=== PATIENT | male | born 1955 | race American Indian/Alaskan Native ===

== ENCOUNTER 2018-08-16 20:38 | Inpatient (IN) | payer BC ==
[2018-08-16] MEDS ORDERED: Sodium Chloride 0.9% 1,000 ML IV SCH (20:45)
--- NOTE | 2018-08-16 20:54 | ED PDOC ---
Arrival/HPI - General Chief Complaint: Weakness/Neurological Deficit - History of Present Illness Narrative History of Present Illness (Text): 62 y/o M c PMHx DM p/w L sided weakness, facial droop, slurred speech noticed 2 hours ago. states he was normal last night around midnight. This is the last time well. left home this morning, patient not awake when she left. She returned from work around 6:30pm and noticed the change. Patient does not notice any change and does not feel that anything is wrong. Otherwise, denies fever, chest pain, vomiting, dyspnea, trauma. Past Medical History - Cardiac Hx Cardiac Disorders: Yes Hx Hypertension: Yes - Endocrine/Metabolic Hx Endocrine Disorders: Yes Hx Diabetes Mellitus Type 1: Yes - Psychiatric Hx Substance Use: No Family/Social History Family/Social History: No Known Family HX Smoking Status: Unknown If Ever Smoked Hx Alcohol Use: No Hx Substance Use: No Allergies/Home Meds Allergies/Adverse Reactions: Allergies No Known Allergies Allergy (Verified 08/16/18 20:40) Review of Systems - Physician Review All systems were reviewed & negative as marked: Yes - Review of Systems Constitutional: absent: Fevers Respiratory: absent: SOB Cardiovascular: absent: Chest Pain Physical Exam - Physical Exam Narrative Physical Exam (Text): Constitutional: No acute distress. Head: Normocephalic. Atraumatic. Eyes: PERRL. ENT: Moist mucous membranes. Neck: Supple. Cardiovascular: Regular rate. Chest: No tenderness. Respiratory: Clear to auscultation bilaterally. GI: Soft. Nontender. Nondistended. Back: No CVA tenderness. Musculoskeletal: No tenderness or swelling of extremities. Skin: No rash. Neurologic: Alert, see NIHSS. Finger Stick Blood Glucose: 326 Medical Decision Making ED Course and Treatment: CODE STROKE activated. EKG NSR 96 bpm, no ST elevations. CXR no acute disease. EXAM: CT Head without Intravenous Contrast. IMPRESSION: 1. There is generalized parenchymal atrophy. 2. Mild chronic periventricular and subcortical microvascular disease is seen. 3. No acute intracranial pathology. Electronically signed on Aug 16, 2018 8:59:54 PM EDT by: Pawan Bunn M.D., NAM Certified By ABR & CBCCT Fellowship Trained MRI and CT Specialist EXAM: CTA Head and Neck with Intravenous Contrast. IMPRESSION: 1. Unremarkable CTA of the head and neck. 2. Degenerative disc disease at C5-6. 3. 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 Electronically signed on Aug 16, 2018 10:13:56 PM EDT by: Pawan Bunn M.D., MBA Certified By ABR & CBCCT Fellowship Trained MRI and CT Specialist 08/16/18 21:34: Case discussed with Dr. Wu (Neurologist cash applications analyst). Recommends permissive HTN, Plavix 300. Not tpa candidate. 08/16/18 21:44: Case discussed in detail with Dr. Pina, covering for Dr. Mcknight. Accepts patient to his service, requests Dr. Gonzalez for neurology consult. - Lab Interpretations I have reviewed the lab results: Yes - RAD Interpretation Radiology Orders: 08/16/18 20:42 CTA HEAD/NECK CODE STROKE [CT] Stat HEAD W/O (CODE STROKE) [CT] Stat CHEST PORTABLE [RAD] Stat - EKG Interpretation Interpreted by ED Physician: Yes Type: 12 lead EKG - Medication Orders Current Medication Orders: Sodium Chloride (Sodium Chloride 0.9%) 1,000 mls @ 100 mls/hr IV .Q10H [facility] NIHSS Scale ([place]) Time Performed: 20:53 - How Severe is the Stoke Baseline Level of Consciousness: 0=Alert LOC to Questions: 0=Both comments correct LOC to commands: 0=Obeys both correctly Best Gaze: 0=Normal Visual: 0=No visual loss Facial: 2=Partial (lower face paralysis) Motor Arm - Left: 1=Drift noted before 10 sec Motor Arm - Right: 0=No drift Motor Leg - Left: 1=Drift before 5 sec Motor Leg - Right: 0=No drift Limb Ataxia: 0=Absent Sensory: 0=Normal Best Language: 0=No aphasia Dysarthia: 1=Mild to moderate slurring Extinction & Inattention (Neglect): 0=Normal, no object Score: 5 Risk Level: Mod Stroke Risk rTPA Inclusion/Exclusion - Refusal of Treatment Patient Refused Treatment: No - Inclusion Criteria for Altepase All of the below criteria for inclusion were reviewed: Yes Patient is 18 years or Older: Yes The Clinical Diagnosis of Ischemic Stroke That is Causing a Potentially Disabling Neurological Deficit: Yes Time of Onset is Well Established to be Less Than 270 Minute Before Treatment Would Begin: Yes Risk/Benefit Discussed With Patient/Family Member Present: Yes Disposition/Present on Arrival - Present on Arrival Any Indicators Present on Arrival: No History of DVT/PE: No History of Uncontrolled Diabetes: No Urinary Catheter: No History of Decub. Ulcer: No History Surgical Site Infection Following: None - Disposition Have Diagnosis and Disposition been Completed?: Yes Diagnosis: CVA (cerebral vascular accident) Disposition: HOSPITALIZED Disposition Time: 21:00 Patient Plan: Admission, Telemetry Condition: FAIR
[2018-08-16 21:17] LABS: BASO # 0.02 K/mm3 (0.0-2.0); BASO % 0.2 % (0.0-3.0); EOS % 0.2 % (1.5-5.0); HEMOGLOBIN 14.1 g/dL (14.0-18.0); LYMPH # 2.2 (1.2-3.4); LYMPH % 26.3 % (22.0-35.0); MEAN CELL VOLUME 85.2 fl (80.0-105.0); MEAN CORPUSCULAR HEMOGLOBIN 29.7 pg (25.0-35.0); MEAN CORPUSCULAR HGB CONC 34.9 g/dl (31.0-37.0); MEAN PLATELET VOLUME 11.5 fl (7.0-11.0); MONO # 0.6 (0.1-0.6); MONO % 7.4 % (1.0-6.0); RBC 4.74 10^6/uL (3.5-6.1); RED CELL DISTRIBUTION WIDTH 12.5 % (11.5-14.5); WHITE BLOOD COUNT 8.2 10^3/uL (4.5-11.0)
[2018-08-16 21:22] LABS: INR 0.98; PARTIAL THROMBOPLASTIN TIME 29.3 Seconds (26.9-38.3); PROTHROMBIN TIME 10.9 SECONDS (9.4-12.5)
[2018-08-16 21:30] LABS: ALBUMIN 4.5 g/dL (3.0-4.8); CALCIUM 9.8 mg/dL (8.4-10.5)
[2018-08-16 21:35] LABS: TROPONIN I 0.04 ng/mL
[2018-08-16] MEDS ORDERED: Labetalol 5mg/ml (4ml) IV STA (23:38)
[2018-08-16 23:40] VITALS: BMI 25.7
--- NOTE | 2018-08-17 06:18 | CP.PCM.PN ---
Subjective - Date & Time of Evaluation Date of Evaluation: 08/17/18 Time of Evaluation: 06:18 - Subjective Subjective: Patient was seen because his blood pressure was elevated. BP was 228/124, repeat one was 222/125. He admits to have some lightheadedness. Denies headache, heaviness in the head, paraesthes, weakness, nausea, vomiting, chest pain , sob. Medical record was reviewed. This 62 year old male was admitted with left sided weakness, facial droop ,slurred speech 2 hours prior to admission. Has PMH of Hypertension, DM iI, hypokalemia, renal insufficiency, hypercholesterolemia, hyperglycemia, Objective - Vital Signs/Intake and Output Vital Signs (last 24 hours): Temp Pulse Resp BP Pulse Ox 97.8 F 72 20 189/103 H 99 08/17/18 05:55 08/17/18 05:55 08/17/18 05:55 08/17/18 05:55 08/17/18 05:55 Intake and Output: 08/16/18 08/17/18 18:59 06:59 Intake Total 400 Balance 400 - Medications Medications: Current Medications Sodium Chloride (Sodium Chloride 0.9%) 1,000 mls @ 100 mls/hr IV .Q10H TOSHIA Last Admin: 08/16/18 21:13 Dose: 100 mls/hr - Labs Labs: 08/16/18 21:00 08/16/18 21:00 PT 10.9 SECONDS (9.4-12.5) 08/16/18 21:00 INR 0.98 08/16/18 21:00 APTT 29.3 Seconds (26.9-38.3) 08/16/18 21:00 - Constitutional Appears: Well, No Acute Distress - Head Exam Head Exam: ATRAUMATIC, NORMAL INSPECTION, NORMOCEPHALIC - Eye Exam Eye Exam: Normal appearance - ENT Exam ENT Exam: Normal External Ear Exam - Neck Exam Neck Exam: Normal Inspection - Respiratory Exam Respiratory Exam: NORMAL BREATHING PATTERN - Cardiovascular Exam Cardiovascular Exam: absent: JVD - GI/Abdominal Exam GI & Abdominal Exam: absent: Distended - Rectal Exam Rectal Exam: Deferred - Exam Additional comments: Deferred. - Extremities Exam Extremities Exam: Normal Inspection - Back Exam Back Exam: NORMAL INSPECTION - Neurological Exam Neurological Exam: Alert, Awake - Psychiatric Exam Psychiatric exam: Normal Affect, Normal Mood - Skin Skin Exam: Normal Color Assessment and Plan - Assessment and Plan (Free Text) Assessment: Hypertensive urgency. Hpertension. DM II. Hypercholesterolemia. Hypokalemia. Renal insufficiency. Plan: Labetolol 20 mg IV x 1. Monitor BP BP at 01:30 was 174/98. Continue present management.
[2018-08-17] MEDS ORDERED: Insulin Reg-LOW-Coverage SC SCH (08:30)
--- NOTE | 2018-08-17 09:18 | CT ---
Date of service: 08/16/2018 PROCEDURE: CT HEAD WITHOUT CONTRAST. HISTORY: Code Stroke COMPARISON: None available. TECHNIQUE: Axial computed tomography images were obtained through the head/brain without intravenous contrast. Radiation dose: Total exam DLP = 987.45 mGy-cm. This CT exam was performed using one or more of the following dose reduction techniques: Automated exposure control, adjustment of the mA and/or kV according to patient size, and/or use of iterative reconstruction technique. FINDINGS: HEMORRHAGE: No intracranial hemorrhage. BRAIN: No mass effect or edema. Mild chronic microvascular changes. No acute intracranial findings VENTRICLES: Unremarkable. No hydrocephalus. CALVARIUM: Unremarkable. PARANASAL SINUSES: Unremarkable as visualized. No significant inflammatory changes. MASTOID AIR CELLS: Unremarkable as visualized. No inflammatory changes. OTHER FINDINGS: The report concurs with the preliminary [facility] report IMPRESSION: No acute intracranial findings
--- NOTE | 2018-08-17 09:23 | CT ---
Date of service: 08/16/2018 PROCEDURE: CT Angiography of the neck with contrast HISTORY: L sided weakness COMPARISON: None. TECHNIQUE: Contiguous axial images of the neck were obtained from the level of the skull-base to the superior mediastinum in the arteriographic phase of enhancement. Coronal and sagittal reformats or also generated. IV contrast dose: 150 cc of Omni 350 Radiation dose: Total exam DLP = 647.22 mGy-cm. This CT exam was performed using one or more of the following dose reduction techniques: Automated exposure control, adjustment of the mA and/or kV according to patient size, and/or use of iterative reconstruction technique. FINDINGS: RIGHT CAROTID ARTERIES: Common Carotid Artery: Normal. Carotid Bifurcation: Normal. Internal Carotid Artery:Normal. External Carotid Artery (proximal branches): Normal. LEFT CAROTID ARTERIES: Common Carotid Artery: Normal. Carotid Bifurcation: Normal. Internal Carotid Artery:Normal. External Carotid Artery (proximal branches): Normal. VERTEBRAL ARTERIES: Right Vertebral Artery: Normal. Left Vertebral Artery: Normal. OTHER FINDINGS: no aortic atherosclerotic calcification or mural plaque present. IMPRESSION: Normal CT Angiography of the neck. CT Angiography of the Brain. HISTORY: L sided weakness COMPARISON: None available. TECHNIQUE: CT angiography of the intracranial arteries was performed. Coronal and sagittal maximum intensity projection reformated images were generated. Radiation dose: Total exam DLP = 647.22 mGy-cm. This CT exam was performed using one or more of the following dose reduction techniques: Automated exposure control, adjustment of the mA and/or kV according to patient size, and/or use of iterative reconstruction technique. FINDINGS: INTERNAL CEREBRAL ARTERIES: Unremarkable. The skull base, petrous, cavernous and supraclinoid segments are bilaterally widely patent. ANTERIOR CEREBRAL ARTERIES: Unremarkable. A1 and A2 segments are widely patent. Smaller distal branches unremarkable, as visualized. MIDDLE CEREBRAL ARTERIES: Unremarkable. M1 and M2 segments are widely patent. Perisylvian branches grossly symmetric. POSTERIOR CIRCULATION: Basilar Artery: Unremarkable. Distal Vertebral Arteries: Unremarkable. Posterior Cerebral Arteries: Unremarkable. Posterior Inferior Cerebellar Arteries: Unremarkable. ANEURYSM/ VASCULAR MALFORMATIONS: None. OTHER FINDINGS: The report concurs with the preliminary [facility] report IMPRESSION: Unremarkable CT Angiography of the Brain.
[2018-08-17] MEDS ORDERED: Potassium Chloride 20 mEq ER Tab PO ONE (09:35)
--- NOTE | 2018-08-17 10:52 | RAD ---
Date of service: 08/16/2018 HISTORY: Code Stroke COMPARISON: No prior. TECHNIQUE: 1 view obtained. FINDINGS: LUNGS: No active pulmonary disease. PLEURA: No significant pleural effusion identified, no pneumothorax apparent. CARDIOVASCULAR: No aortic atherosclerotic calcification present. Normal cardiac size. No pulmonary vascular congestion. OSSEOUS STRUCTURES: No significant abnormalities. VISUALIZED UPPER ABDOMEN: Normal. OTHER FINDINGS: None. IMPRESSION: No active disease.
[2018-08-17] MEDS: Insulin Reg-MEDIUM-Coverage SC SCH ×3 (13:02→22:39)
--- NOTE | 2018-08-17 15:08 | CP.PCM.CON ---
History of Present Illness - History of Present Illness History of Present Illness: Neurology Consultation Note: Consult requested by Dr. Mcknight Mr. Martinez is a 62-year-old man with a past medical history of DM, who presented to the ED last night with left side weakness. He was last normal the previous day, and was not a candidate for IV tPA. CT scan of the head did not show any acute findings. There was no large vessel occlusion on CTA. Today, his left side strength is better, but still not back to baseline. Review of Systems - Constitutional Constitutional: As Per HPI - EENT Eyes: absent: As Per HPI, Blind Spots, Blurred Vision, Change in Vision, Decreased Night Vision, Diplopia, Discharge, Dry Eye, Exophthalmos, Floaters, Irritation, Itchy Eyes, Loss of Peripheral Vision, Pain, Photophobia, Requires Corrective Lenses, Sees Flashes, Spots in Vision, Tunnel Vision, Other Visual Disturbances, Loss of Vision, Other Ears: absent: As Per HPI, Decreased Hearing, Ear Discharge, Ear Pain, Tinnitus, Abnormal Hearing, Disequilibrium, Dizziness, Other Nose/Mouth/Throat: absent: As Per HPI, Epistaxis, Nasal Congestion, Nasal Discharge, Nasal Obstruction, Nasal Trauma, Nose Pain, Post Nasal Drip, Sinus Pain, Sinus Pressure, Bleeding Gums, Change in Voice, Dental Pain, Dry Mouth, Dysphagia, Halitosis, Hoarsness, Lip Swelling, Mouth Lesions, Mouth Pain, Odynophagia, Sore Throat, Throat Swelling, Tongue Swelling, Facial Pain, Neck Pain, Neck Mass, Other - Cardiovascular Cardiovascular: absent: As Per HPI, Acrocyanosis, Chest Pain, Chest Pain at Rest, Chest Pain with Activity, Claudication, Diaphoresis, Dyspnea, Dyspnea on Exertion, Edema, Irregular Heart Rhythm, Pain Radiating to Arm/Neck/Jaw, Leg Steven ma, Leg Ulcers, Lightheadedness, Orthopnea, Palpitations, Paroxysmal Nocturnal Dyspnea, Pedal Edema, Radiating Pain, Rapid Heart Rate, Slow Heart Rate, Syncope, Other - Respiratory Respiratory: absent: As Per HPI, Cough, Dyspnea, Hemoptysis, Dyspnea on Exertion , Wheezing, Snoring, Stridor, Pain on Inspiration, Chest Congestion, Excessive Mucous Production, Change in Mucous Color, Pain with Coughing, Other - Musculoskeletal Musculoskeletal: absent: As Per HPI, Abnormal Gait, Arthralgias, Atrophy, Back Pain, Deformity, Joint Swelling, Limited Range of Motion, Loss of Height, Muscle Cramps, Muscle Weakness, Myalgias, Neck Pain, Numbness, Radiating Pain into Limb, Stiffness, Tingling, Other - Integumentary Integumentary: absent: As Per HPI, Acne, Alopecia, Bleeding Lesions, Change in Hair, Change in Nails, Change in Pigmentation, Changing Lesions, Dry Skin, Erythema, Furuncle, Hirsutism, Lesions, New Lesions, Non-Healing Lesions, Photosensitivity, Pruritus, Rash, Skin Pain, Skin Ulcer, Sores, Striae, Swelling, Unusual Bruising, Wounds, Jaundice, Other - Neurological Neurological: As Per HPI - Psychiatric Psychiatric: absent: As Per HPI, Abnormal Sleep Pattern, Anhedonia, Anxiety, Auditory Hallucinations, Behavioral Changes, Change in Appetite, Change in Libido, Confusion, Depression, Difficulty Concentrating, Hallucinations, Homicidal Ideation, Hopelessness, Irritability, Memory Loss, Mood Swings, Panic Attacks, Paranoia, Suicidal Ideation, Visual Hallucinations, Tactile Hallucinations, Other - Endocrine Endocrine: absent: As Per HPI, Change in Body Appearance, Change in Libido, Cold Intolorance, Deepening of Voice, Excessive Sweating, Fatigue, Flushing, Heat Intolorance, Increase in Ring/Shoe/Hat Size, Palpitations, Polydipsia, Polyphagia, Polyuria, Other - Hematologic/Lymphatic Hematologic: absent: As Per HPI, Easy Bleeding, Easy Bruising, Lymphadenopathy, Other Past Patient History - Past Social History Smoking Status: Unknown If Ever Smoked - CARDIAC Hx Cardiac Disorders: Yes Hx Hypertension: Yes - ENDOCRINE/METABOLIC Hx Endocrine Disorders: Yes Hx Diabetes Mellitus Type 1: Yes - MUSCULOSKELETAL/RHEUMATOLOGICAL Hx Falls: No - PSYCHIATRIC Hx Substance Use: No Meds Allergies/Adverse Reactions: Allergies Allergy/AdvReac Type Severity Reaction Status Date / Time No Known Allergies Allergy Verified 08/16/18 20:40 - Medications Medications: Current Medications Atorvastatin Calcium (Lipitor) 80 mg PO DIN TOSHIA Insulin Human Regular (Humulin R Med) 0 units SC ACHS [facility]; Protocol Last Admin: 08/17/18 13:02 Dose: 10 units Physical Exam - Constitutional Appears: Well - Head Exam Head Exam: ATRAUMATIC, NORMAL INSPECTION, NORMOCEPHALIC - Eye Exam Eye Exam: EOMI, Normal appearance, PERRL Pupil Exam: NORMAL ACCOMODATION, PERRL - ENT Exam ENT Exam: Mucous Membranes Moist, Normal Exam - Neck Exam Neck exam: Positive for: Normal Inspection - Respiratory Exam Respiratory Exam: Clear to Auscultation Bilateral, NORMAL BREATHING PATTERN - Cardiovascular Exam Cardiovascular Exam: REGULAR RHYTHM - GI/Abdominal Exam GI & Abdominal Exam: Normal Bowel Sounds, Soft. absent: Tenderness - Extremities Exam Extremities exam: Positive for: normal inspection - Back Exam Back exam: NORMAL INSPECTION - Neurological Exam Neurological exam: Alert, CN II-XII Intact, Normal Gait, Oriented x3, Reflexes Normal Additional comments: Left upper extremity pronator drift and fine motor deficits with slight left facial droop for an NIHSS of 3 - Psychiatric Exam Psychiatric exam: Normal Affect, Normal Mood - Skin Skin Exam: Dry, Intact, Normal Color, Warm Results - Vital Signs Recent Vital Signs: Last Vital Signs Temp 98.1 F 08/17/18 12:00 Pulse 85 08/17/18 12:00 Resp 18 08/17/18 12:00 BP 186/43 H 08/17/18 12:00 Pulse Ox 99 08/17/18 05:55 - Labs Result Diagrams: 08/16/18 21:00 08/16/18 21:00 Labs: Laboratory Results - last 24 hr 08/16/18 08/16/18 08/16/18 21:00 21:00 21:00 WBC 8.2 RBC 4.74 Hgb 14.1 Hct 40.4 L MCV 85.2 MCH 29.7 MCHC 34.9 RDW 12.5 Plt Count 256 MPV 11.5 H Neut % (Auto) 65.9 Lymph % (Auto) 26.3 [place] % (Auto) 7.4 H Eos % (Auto) 0.2 L Baso % (Auto) 0.2 Lymph # (Auto) 2.2 [place] # (Auto) 0.6 Eos # (Auto) 0.0 Baso # (Auto) 0.02 Absolute Neuts (auto) 5.42 PT 10.9 INR 0.98 APTT 29.3 Sodium 136 Potassium 3.2 L Chloride 97 L Carbon Dioxide 26 Anion Gap 16 BUN 30 H Creatinine 2.8 H Est GFR ( Amer) 28 Est GFR (Non-Af Amer) 23 Random Glucose 352 H* Hemoglobin A1c Calcium 9.8 Total Bilirubin 0.4 AST 24 ALT 19 Alkaline Phosphatase 176 H Troponin I 0.04 Total Protein 9.2 H Albumin 4.5 Globulin 4.7 Albumin/Globulin Ratio 1.0 L Triglycerides 139 Cholesterol 254 H LDL Cholesterol Direct 134 H HDL Cholesterol 63 H Blood Type Blood Type Confirm Antibody Screen BBK History Checked 08/16/18 08/16/18 08/17/18 21:00 21:00 00:40 WBC RBC Hgb Hct MCV MCH MCHC RDW Plt Count MPV Neut % (Auto) Lymph % (Auto) [place] % (Auto) Eos % (Auto) Baso % (Auto) Lymph # (Auto) [place] # (Auto) Eos # (Auto) Baso # (Auto) Absolute Neuts (auto) PT INR APTT Sodium Potassium Chloride Carbon Dioxide Anion Gap BUN Creatinine Est GFR ( Amer) Est GFR (Non-Af Amer) Random Glucose Hemoglobin A1c 15.9 H Calcium Total Bilirubin AST ALT Alkaline Phosphatase Troponin I Total Protein Albumin Globulin Albumin/Globulin Ratio Triglycerides Cholesterol LDL Cholesterol Direct HDL Cholesterol Blood Type B POSITIVE Blood Type Confirm B POSITIVE Antibody Screen Negative BBK History Checked No verified bt Assessment & Plan (1) CVA (cerebral vascular accident) Assessment and Plan: Likely a subcortical right basal ganglia infarct. I recommend the followin. Telemetry 2. MRI brain without contrast 3. Echocardiogram 4. PT/OT eval 5. Check HbA1c, lipid panel, B12, folate, TSH, vitamin D level 6. Lipitor 40 mg daily 7. Dual antiplatelet therapy with aspirin 81 mg and plavix 75 mg daily for 3 wee , then continue only Plavix 75 mg monotherapy indefinitely. 8. Permissive HTN (only treat BP that is higher than 220/110 mm Hg) 9. FLuids with NS at 100 mL/hr 10. Case management Thank you. Status: Acute
--- NOTE | 2018-08-17 16:11 | US ---
Date of service: 08/17/2018 PROCEDURE: Ultrasound of the Kidneys HISTORY: ARF COMPARISON: None available. TECHNIQUE: Sonogram of the kidneys. FINDINGS: RIGHT KIDNEY: Measures: 9.45 x 4.32 x 4.88 cm. Normal in size, contour and echogenicity. No stone, solid mass lesion or hydronephrosis visualized. LEFT KIDNEY: Measures: 10.40 x 5.46 x 5.46 cm. Normal in size, contour and echogenicity. No stone, solid mass lesion or hydronephrosis visualized. OTHER FINDINGS: None. IMPRESSION: Unremarkable renal sonogram.
--- NOTE | 2018-08-17 17:38 | CARD ---
APPROVED REPORT Date of service: 08/16/2018 EKG Measurement Heart [id number] <Conclusion> Normal sinus rhythm Possible Left atrial enlargement Nonspecific ST abnormality Abnormal ECG
--- NOTE | 2018-08-17 18:44 | HP ---
DATE OF EXAM: 08/17/2018 CHIEF COMPLAINT AND HISTORY OF PRESENT ILLNESS: This is a 62-year-old male who is coming into the hospital with slurred speech, left-sided weakness that started 2 hours prior to coming to the hospital. According to the ER, the patient's states that he was normal last mid night and then this morning when she saw him, she noticed that he was having the slurred speech and left-sided weakness with facial droop. She had left home in the morning and the patient was not awake. It is unclear what time that the stroke may have happened. The patient says he is feeling better, he has improvement of his symptoms. He has no complaints of any chest pain. No shortness of breath. No nausea. No vomiting. No diarrhea. No fever, headaches, or chills. He is talking regularly. He denies any weakness in the arms or legs. REVIEW OF SYSTEMS: All other review of symptoms are within normal limits except as mentioned. ALLERGIES: NO KNOWN DRUG ALLERGIES. PAST MEDICAL HISTORY: Hypertension; diabetes, type 2. SOCIAL HISTORY: The patient does not drink, smoke or use drugs. FAMILY HISTORY: Noncontributory. HOME MEDICATIONS: He does not remember his medications. PHYSICAL EXAMINATION VITAL SIGNS: He has a temperature of 97.8, pulse of 72, blood pressure is 189/103, respirations are 20, O2 saturation is 99%. Height is 5 feet 5 inches. Weight is 155 pounds. Repeat blood pressure is 178/110. GENERAL: The patient is lying in bed, comfortable, and in no acute distress. HEENT: Atraumatic and normocephalic. Anicteric sclerae. Moist mucosa. [place] conjunctivae. No oral lesions. NECK: No JVD, anterior and posterior adenopathy, thyromegaly, or bruits. CARDIOVASCULAR: S1 and S2 regular. No murmurs, rubs or gallops. LUNGS: Clear to auscultation bilaterally. No wheezes, rales, or rhonchi. ABDOMEN: Bowel sounds are positive. Soft, nontender and nondistended. No hepatosplenomegaly. No rebound and no guarding EXTREMITIES: No cyanosis, clubbing, or edema. NEUROLOGIC: No facial asymmetry. Tongue is midline. No uvula deviation. Power is 5/5 upper extremities and lower extremities. Sensation intact in upper extremities and lower extremities. PSYCHIATRIC: She is awake, alert and oriented x3. No anxiety or depression. She has normal affect. GENITOURINARY: No CVA tenderness. VASCULAR: 2+ pulses in the carotid pulses and pedal pulses. SKIN: No erythema or nodules SPINE: Shows normal curvature. LABORATORY DATA: White count of 8.2, hemoglobin is 14.1, and platelet count is 256. INR is 0.9 and chemistry shows a sodium of 136, potassium is 3.2, glucose is 352, LDL is 134, HDL is 63. His EKG shows heart rate of 96 sinus rhythm, left atrial enlargement. Chest x-ray shows no infiltrates. CT of the head done shows general parenchymal atrophy, there is no acute intracranial pathology. CTA done shows degenerative disk disease at C5-C6, there is unremarkable CTA of the head. ASSESSMENT 1. 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 2. Degenerative joint disease at C5-C6. 3. Hypertension. 4. Dyslipidemia. 5. Hypokalemia. 6. Diabetes, type 2, uncontrolled- new onset 7. Acute kidney injury versus chronic kidney disease. PLAN: The patient is going to be admitted to the hospital. He had left-sided arm weakness as well as facial droop. Most likely, the patient has a right-sided MCA stroke. The patient has improved significantly, he does not have any focal abnormalities. His CTA of the head has been normal. The CTA shows degenerative disk disease. He is currently comfortable. I will place him on a diet. The patient's sugars are significantly elevated. He will need to be on an insulin sliding scale. He has an elevated creatinine, I am not sure if this is acute kidney injury or he has CKD secondary to diabetes. I will get urine for protein and creatinine. The patient will most likely need further evaluation, I am concerned that the patient has an elevated total protein, this may indicate that he may need evaluation for hyperproteinemia to rule out Waldenstrom or multiple myeloma. I will send a SPEP and UPEP as well as do a empoial-yd-fjtrlcesoc ratio. The patient's hemoglobin is normal. He is on telemetry. I will place him on Norvasc for his hypertension. He will need further evaluation with Dr. Gonzalez. The patient will be started on statin therapy. I will place him on atorvastatin high dose because of the patient's stroke. He will most likely need physical therapy. We will continue to follow closely. Geronimo Pina MD [facility]
[2018-08-18] MEDS ORDERED: Labetalol 5mg/ml (4ml) IV ONE (00:15)
--- NOTE | 2018-08-18 04:50 | CP.PCM.PN ---
Subjective - Date & Time of Evaluation Date of Evaluation: 08/18/18 Time of Evaluation: 04:48 - Subjective Subjective: To be dictated. BP -195/87. Rx, Labetolol 20 mg IV has been ordered. patient seen. Asymptomatic. Resting now. Objective - Vital Signs/Intake and Output Vital Signs (last 24 hours): Temp Pulse Resp BP Pulse Ox 98.2 F 106 H 18 188/96 H 99 08/17/18 18:00 08/17/18 18:00 08/17/18 18:00 08/17/18 18:00 08/17/18 18:00 Intake and Output: 08/17/18 08/18/18 18:59 06:59 Intake Total 1140 Balance 1140 - Medications Medications: Current Medications Atorvastatin Calcium (Lipitor) 80 mg PO DIN TOSHIA Last Admin: 08/17/18 17:31 Dose: 80 mg Insulin Human Regular (Humulin R Med) 0 units SC ACHS [facility]; Protocol Last Admin: 08/17/18 22:39 Dose: 2 units - Labs Labs: 08/16/18 21:00 08/16/18 21:00 PT 10.9 SECONDS (9.4-12.5) 08/16/18 21:00 INR 0.98 08/16/18 21:00 APTT 29.3 Seconds (26.9-38.3) 08/16/18 21:00
[2018-08-18 07:23] LABS: HEMOGLOBIN 13.1 g/dL (14.0-18.0); MEAN CELL VOLUME 86.5 fl (80.0-105.0); MEAN CORPUSCULAR HEMOGLOBIN 29.5 pg (25.0-35.0); MEAN CORPUSCULAR HGB CONC 34.1 g/dl (31.0-37.0); MEAN PLATELET VOLUME 10.8 fl (7.0-11.0); RBC 4.44 10^6/uL (3.5-6.1); RED CELL DISTRIBUTION WIDTH 12.7 % (11.5-14.5)
[2018-08-18 07:47] LABS: ALB/GLOB RATIO 0.8 (1.1-1.8); ALBUMIN 3.7 g/dL (3.0-4.8); CALCIUM 9.1 mg/dL (8.4-10.5)
[2018-08-18] MEDS: Insulin Reg-MEDIUM-Coverage SC SCH ×4 (08:38→22:09)
--- NOTE | 2018-08-18 13:44 | PN ---
DATE: 08/18/2018 SUBJECTIVE: The patient is 62 years old, seen and examined, lying in bed, seems to be comfortable. According to daughter, who is by the bedside, named Cristiane states that on the day of incident, she definitely saw her father had unstable gait and facial droop; however, workup so far is negative. The patient scheduled to have MRI done today. PHYSICAL EXAMINATION: GENERAL: On examination today, he is awake, alert, oriented, and communicative. VITAL SIGNS: He is afebrile, pulse 106, respiration 18, and blood pressure 188/96. LUNGS: Bilateral fair airflow. No rhonchi or crackle. HEART: S1 and S2 audible. ABDOMEN: Soft and nontender. No rebound. No guarding. NEUROLOGIC: The patient is awake and alert; able to communicate. EXTREMITIES: Able to move all extremities. LABORATORY DATA: WBC is 7.0, hemoglobin 13, hematocrit 38.4, and platelet of 260. Chemistry; sodium 136, potassium 3.8, chloride 100, CO2 of 26, BUN 36, creatinine 3.4, and blood sugar of 296. Renal ultrasound is unremarkable. CT neck and CT scan of the head are unremarkable. ASSESSMENT: 1. Probably transient ischemic attack. 2. Uncontrolled hypertension. 3. Uncontrolled diabetes. 4. Hyperlipidemia. 5. Probably diabetic kidney disease. PLAN: We will start him on oral anticoagulant. Start him on statin. Start him on amlodipine 10 mg daily. We will get Renal consult for further Nephrology workup. We will monitor his blood sugar. Physical therapy evaluation has been requested. We will follow up his CBC and CMP in a.m. Ze Mcknight MD
--- NOTE | 2018-08-18 14:21 | MRI ---
Date of service: 08/18/2018 PROCEDURE: MRI BRAIN WITHOUT CONTRAST HISTORY: cva COMPARISON: None available. TECHNIQUE: Multiplanar, multisequence MR images of the brain were obtained without intravenous contrast enhancement. FINDINGS: HEMORRHAGE: None DWI: Multi focal areas of restricted diffusion are seen in the right frontal lobe involving the cortex and deep white matter consistent with acute infarcts. The findings are also seen on FLAIR and T2 images. BRAIN PARENCHYMA: No mass effect or edema. Chronic microvascular changes are seen in the periventricular white matter. VENTRICLES: Unremarkable. No hydrocephalus. CRANIUM: Unremarkable. ORBITS: Grossly unremarkable. PARANASAL SINUSES/MASTOIDS: Clear VASCULAR SYSTEM: Skull base flow voids intact. OTHER FINDINGS: None. IMPRESSION: Multiple small acute infarcts in the right frontal lobe involving the deep white matter and cortex.
--- NOTE | 2018-08-18 16:11 | CON ---
DATE: 08/18/2018 NEUROLOGY CONSULTATION CHIEF COMPLAINT: Left-sided weakness. HISTORY OF PRESENT ILLNESS: This is a 62-year-old male, with past medical history of type 2 diabetes mellitus, uncontrolled, who was brought in after having left-sided weakness there in the previous day when, therefore, was on IV TPA candidate since I was out of now within the time window. CAT scan of the head showed no intracranial abnormality. CT angio showed no evidence of large vessel occlusion. His left upper extremity weakness when compared to the right and seems that is possibly could not had a subcortical right basal ganglia infarct from uncontrolled hypertension as well as uncontrolled diabetes given that his hemoglobin A1c is 15.9. Diabetic education given to the patient. PAST MEDICAL HISTORY: As above. FAMILY HISTORY: Noncontributory. SOCIAL HISTORY: No illicit drug use, smoking, or EtOH abuse. REVIEW OF SYSTEMS: A 14-point review of systems is negative except as per the HPI. MEDICATIONS: Reviewed by nurse's reconciliation sheet. LABORATORY DATA: Sodium is 136, potassium 3.8, chloride of 100, carbon dioxide 26, BUN of 36, creatinine 3.4, and blood sugar is 296. Renal ultrasound is unremarkable. PHYSICAL EXAMINATION: GENERAL: The patient is seen up in bed. No acute distress. VITAL SIGNS: Temperature 98, pulse 104, respiratory rate 20, and oxygen saturation 98% on room air. HEENT: Atraumatic and normocephalic. PERRLA. Extraocular muscles intact. NECK: Supple. No JVD. No adenopathy noted. LUNGS: Clear to auscultation. No adventitious sounds. HEART: S1 and S2. Normal rate and rhythm. No murmurs, rubs, or gallops. ABDOMEN: Soft, nontender, and nondistended. Bowel sounds present. EXTREMITIES: No clubbing. No cyanosis. Peripheral pulses are 2+ felt bilaterally. NEUROLOGIC: The patient is alert and oriented to person and place. Speech is fluent without any errors. Cranial nerves II through XII are intact. Motor: Moves all extremities equally except for lift-sided upper extremity weakness when compared to the right. Toes are upgoing bilaterally. Sensory: Light touch, pinprick, proprioception, and vibration are intact. DTRs are 2+ throughout. Coordination: Wkstye-cl-ztxb is intact. No dysmetria noted. Gait is deferred for now. IMPRESSION: Left-sided weakness is likely secondary to subcortical right basal ganglia infarct versus transient ischemic attack secondary to uncontrolled diabetes given the hemoglobin A1c is 15.9 and uncontrolled hypertension. RECOMMENDATIONS: At this time we will recommend; 1. Blood pressure control. Keep blood pressure between 130s to 140s systolic and diastolic 70s to 80s and avoid hypertensive episodes. 2. Diabetic control is needed. An Endocrinology consult will be beneficial. He needs to keep blood sugars between 140 to 180. 3. Aspirin 81 mg p.o. daily, Plavix 75 mg p.o. daily, do antiplatelet therapy for extra stroke prevention in addition to Lipitor 80 mg for daily. 4. PT/OT evaluation and MRI of the brain which is currently pending. Thank you for this consult. Isaiah Gonzalez MD
--- NOTE | 2018-08-18 19:23 | CARD ---
APPROVED REPORT Date of service: 08/18/2018 EXAM: Two-dimensional and M-mode echocardiogram with Doppler and color Doppler. INDICATION CVA/TIA 2D DIMENSIONS Left Atrium (2D)4.0 (1.6-4.0cm)IVSd1.5 (0.7-1.1cm) LVDd4.4 (3.9-5.9cm)PWd1.4 (0.7-1.1cm) LVDs3.2 (2.5-4.0cm)FS (%) 27.2 % LVEF (%)53.3 (>50%) M-Mode DIMENSIONS Aortic Root2.80 (2.2-3.7cm)Aortic Cusp Exc.1.30 (1.5-2.0cm) Aortic Valve AoV Peak Jmoidpbk906.0cm/Jacqueline Peak GR.6mmHg Mitral Valve MV E Nnxsjyxf81.5cm/sMV A Gvslgirh26.6cm/sE/A ratio0.8 TDI E/Lateral E'0.0E/Medial E'0.0 Tricuspid Valve TR Peak Lbacttqe455ng/sRAP [id number] Peak Gr.10mmHg [id number] LEFT VENTRICLE The left ventricle is normal size. There is mild to moderate concentric left ventricular hypertrophy. The left ventricular function is normal. The left ventricular ejection fraction is within the normal range. There is normal LV segmental wall motion. Transmitral Doppler flow pattern is Grade I-abnormal relaxation pattern. RIGHT VENTRICLE The right ventricle is normal size. There is normal right ventricular wall thickness. The right ventricular systolic function is normal. ATRIA The left atrium size is normal. The right atrium size is normal. AORTIC VALVE The aortic valve is moderately thickened. There is trace aortic regurgitation. There is no aortic valvular stenosis. MITRAL VALVE The mitral valve is normal in structure. There is no mitral valve regurgitation noted. There is no mitral valve stenosis. TRICUSPID VALVE The tricuspid valve is normal in structure. There is trace tricuspid regurgitation. PULMONIC VALVE There is mild pulmonic valvular regurgitation. GREAT VESSELS The aortic root is normal in size. The IVC is normal in size and collapses >50% with inspiration. PERICARDIAL EFFUSION There is no pericardial effusion. <Conclusion> There is mild to moderate concentric left ventricular hypertrophy. The left ventricular function is normal. The left ventricular ejection fraction is within the normal range. There is normal LV segmental wall motion. Transmitral Doppler flow pattern is Grade I-abnormal relaxation pattern. There is mild pulmonic valvular regurgitation.
--- NOTE | 2018-08-18 19:28 | US ---
PROCEDURE: Bilateral carotid artery duplex ultrasound HISTORY: Carotid stenosis syncope PHYSICIAN(S): Frederic Shaw MD. TECHNIQUE: Duplex sonography and color-flow Doppler were used to evaluate the carotid bifurcations and limited segments of the vertebral arteries bilaterally. FINDINGS: There is mild smooth hypoechoic plaque noted at the carotid bifurcations bilaterally. The peak systolic velocity in the proximal right internal carotid artery is 72 cm/sec. This corresponds to a 20 to 39% proximal right ICA stenosis. Normal systolic velocities are noted in the proximal right external carotid artery. There is antegrade flow in the right vertebral artery. The peak systolic velocity in the proximal left internal carotid artery is 65 cm/sec. This corresponds to a 20 to 39% proximal left ICA stenosis. Normal systolic velocities are noted in the proximal left external carotid artery. There is antegrade flow in the left vertebral artery. IMPRESSION: 1. Bilateral 20-39% proximal ICA stenoses. 2. Antegrade flow in both vertebral arteries.
[2018-08-19 07:55] LABS: CALCIUM 9.4 mg/dL (8.4-10.5)
[2018-08-19] MEDS: Insulin Reg-MEDIUM-Coverage SC SCH ×4 (09:11→21:47)
--- NOTE | 2018-08-19 15:47 | PN ---
DATE: 08/19/2018 NEUROLOGY FOLLOWUP CHIEF COMPLAINT: Followup for left-sided weakness. SUBJECTIVE: The patient was seen and examined at bedside. He has mild subtle left-sided weakness. He is working with physical therapy at bedside. His MRI of the brain showed scattered multiple small acute infarcts on the right frontal lobe in the deep white matter area. He is going to be placed on aspirin 81 and Plavix 75, with dual-antiplatelet therapy. His hemoglobin A1c is 50.9 indicating poorly controlled diabetes. Case was discussed with his at bedside. Diabetic education given to the patient. PAST MEDICAL HISTORY: Type 2 diabetes mellitus, uncontrolled. FAMILY HISTORY: Noncontributory. SOCIAL HISTORY: No illicit drug use, smoking, or EtOH abuse. REVIEW OF SYSTEMS: A 14-point review of systems is negative except in the HPI. MEDICATIONS: Reviewed by nurse per reconciliation sheet. LABORATORY DATA: Sodium is 138, potassium 2.6, chloride 100, BUN of 39, creatinine 2.9, random glucose 125. PHYSICAL EXAMINATION: VITAL SIGNS: Temperature afebrile, pulse rate of 74, blood pressure 178/90, respirations 16. GENERAL: The patient is sitting up in bed, in no acute distress. HEENT: Atraumatic and normocephalic. PERRLA. Extraocular muscles intact. NECK: Supple. No JVD. No adenopathy noted. LUNGS: Clear to auscultation. No adventitious sounds. HEART: S1, S2, normal rate and rhythm. No murmurs, rubs or gallops. ABDOMEN: Soft, nontender. Bowel sounds present. EXTREMITIES: No clubbing. No cyanosis. Peripheral pulses 2+ bilaterally. NEUROLOGIC: The patient is alert and oriented to person, place, month, and year. Speech is fluent without any errors except for some mild dysarthria. Cranial nerves II through XII intact. Moves all extremities equally on motor examination except for left side upper extremity and mild left-sided lower extremity weakness. Toes are upgoing bilaterally. Sensory exam: Light touch, pinprick, proprioception, and vibration are intact. DTRs are 2+ throughout. Coordination: Rxfyvl-ji-fcrg intact. No dysmetria noted. Gait is slightly wide based. IMPRESSION: Left-sided weakness secondary to subcortical right middle cerebral artery small scattered infarct secondary to uncontrolled diabetes given his hemoglobin A1c of and uncontrolled hypertension. PLAN: At this time, recommend: 1. Blood pressure control is needed. Need to keep the blood pressure between 130s to 140s systolic and diastolic 70 to 80s and avoid hypertensive episodes. 2. Aspirin 81 mg p.o. daily, Plavix 75 mg p.o. daily in addition to Lipitor 80 mg daily for stroke prevention. 3. Keep his blood sugars between 140 and 180 and diabetic education needed and continue with glimepiride 2 mg a.c. and b.d. with Januvia as well. 4. We will follow up him in our office as an outpatient. Thank you for this followup. Isaiah Gonzalez MD
[2018-08-19 18:44] LABS: ALBUMIN (PEP) 3.9 g/dL (3.8-4.8); ALPHA-1-GLOBULIN (PEP) 0.3 g/dL (0.2-0.3)
--- NOTE | 2018-08-19 20:04 | CON ---
DATE OF CONSULTATION: 08/19/2018 The patient is admitted for Dr. Mcknight. REFERRING MD: Dr. Mcknight. REASON FOR CONSULTATION: Evaluation of a patient unknown to me, who presents with likely chronic kidney disease with worsening renal parameters. 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 The patient has a [id number] history of diabetes mellitus, a 15 to 20-year history of hypertension. The patient presented to the emergency room with an acute right-sided CVA, left-sided weakness and facial droop with slurred speech. The patient was felt to have an acute CVA upon workup. The patient's BUN was 30 with a creatinine of 2.8 on admission to the hospital. Potassium was 3.2. Hemoglobin A1c was 15.9%. The patient had been followed by a primary care physician not on staff at the hospital, who had asked him multiple times to have laboratory work done and to take his diabetes more seriously. The patient apparently did not follow his sugars at home. He did not call for blood work in several years. He was noted to have a BUN of 30 and a creatinine of 2.8. The patient has no past history of renal disease, as he has not had any blood work in years. His BUN and creatinine have gravitated up to 39 and 3.9. We are asked to evaluate the patient for his rising BUN and creatinine superimposed on chronic kidney disease, likely secondary to diabetes. The patient does note bubbles and foam in his urine. The patient's medications at home are uncertain as to whether or not he is compliant with medication. It is unclear whether he has been on an KIM inhibitor or an angiotensin receptor kaylee. We have been asked to evaluate the patient for his renal dysfunction. PAST MEDICAL HISTORY: Significant for hypertension, NIDDM, hyperlipidemia, and LVH. MEDICATIONS AT HOME: Uncertain. CURRENT MEDICATIONS IN HOSPITAL: Include that of Amaryl, Apresoline, aspirin, clonidine, sliding-scale insulin, Januvia, Lipitor, Norvasc and Plavix. ALLERGIES: THE PATIENT HAS NO KNOWN ALLERGIES TO MEDICATIONS. SOCIAL HISTORY: No history of cigarette smoking. No history of alcohol use. No history of drug use. FAMILY HISTORY: Positive for complications of diabetes in his parents and in his siblings. He denies anybody having had end-stage renal disease or no history of chronic kidney disease known to the patient. REVIEW OF SYSTEMS: GENERAL: The patient states appetite and weight have been stable. ENT: Denies any hearing or visual problems. He has no history of diabetic retinopathy, but he does not see an geography teacher. PULMONARY: No history of COPD. No history of asthma, bronchitis, emphysema, or pneumonia. CARDIAC: No known history of coronary artery disease. History of concentric LVH is noted above. GASTROINTESTINAL: No history of nausea, vomiting, diarrhea, constipation, or abdominal pain. GENITOURINARY: History of chronic kidney disease likely. No history of BPH. No history of prostatitis. No history of urinary tract infections. ENDOCRINE: History of diabetes mellitus, uncontrolled of many years' duration secondary to noncompliance. MUSCULOSKELETAL: No issues. NEURO: No history of diabetic neuropathy. No previous history of CVA, TIA, seizures or syncope up until this point in time. HEM/ONC: No history of anemia. No history of malignancy. PSYCHIATRIC: History is negative. PHYSICAL EXAMINATION: GENERAL: The patient is currently seen on 2R with close friends in the room. VITAL SIGNS: Blood pressure currently is 170 - 191 systolic with diastolics in the 90-99 range. Heart rate is 92, temperature 99.1 with a respiratory rate of 20. HEENT: Exam shows him to be normocephalic, atraumatic. Conjunctivae are pink. Sclerae are nonicteric. Pupils equal and reactive to light and accommodation. Extraocular muscles are intact. Posterior pharynx is normal. No facial droop. NECK: Supple. No neck vein distention or thyromegaly. No lymphadenopathy. No bruits. CHEST: Clear to auscultation and percussion with no rales, rhonchi or wheezing. CARDIOVASCULAR: Shows a regular rate and rhythm without audible murmurs, rubs or gallops. ABDOMEN: Soft. Bowel sounds normal. No rebound, guarding or masses. BACK: No CVAT. No spinal tenderness. EXTREMITIES: Show no lower extremity cyanosis, clubbing or edema. Distal lower extremity pulses are 1 to 2+ bilaterally. NEURO: Shows him to be alert, oriented x3 with no gross focal motor or sensory deficits. Handgrip is equal bilaterally. No speech deficits. No facial asymmetry. LABORATORY DATA AND IMAGING STUDIES: Admitting head CT scan showed mild atrophy with no acute changes. Followup brain MRI showed acute small right frontal lobe infarcts. Head CTA was negative. Noninvasive carotid study showed mild bilateral internal carotid artery stenosis of 20 - 39%. Chest x-ray showed no acute pulmonary disease. Renal ultrasound was done, which was completely normal, two normal-sized kidneys, no increased echogenicity, no obstructive uropathy. Labs: CBC, white blood cell count of 7 with a hemoglobin of 13.1, platelet count is 260,000. Coags are normal. Chemistries showed normal electrolytes. BUN is now 39 with a creatinine of 3.9. Glucose on admission was 352, it is 125. Hemoglobin A1c was unacceptable at 15.9%. Calcium was 9.4. Phosphorus was 4.7 with a magnesium of 2.1. Liver enzymes are normal. Serum protein electrophoresis was sent. Results are pending. Troponins were unremarkable. Total cholesterol 254 with an LDL of 134, triglycerides of 139, HDL of 63. Urine eosinophils was negative. Urine random protein was 420. Immune fixation and serum protein electrophoresis are pending as noted above. Microbiology, no cultures were sent. ASSESSMENT: 1. Advance chronic kidney disease, likely stage III/IV. The patient has worsening of his renal parameters. This is all conceivably consistent with uncontrolled diabetes of many years' duration with chronic kidney disease and diabetic kidney disease. I will obtain a 24-hour urine for creatinine clearance and protein. In all likelihood, the patient has significant protein leak. I will obtain a full serological workup. If this is all felt to be consistent with diabetic kidney disease, the patient has advanced chronic kidney disease as noted above. Perhaps the recent increase in his BUN and creatinine were secondary to the trial of an angiotensin receptor kaylee, which at present is contraindicated in this patient. Perhaps the increase in BUN and creatinine might also be secondary to the contrast dye used for his CT angio of the neck. 2. Uncontrolled hypertension. We will need to use a regimen, which is free of KIM inhibitors and angiotensin receptor blockers. We will maximize calcium channel blockers. We could try hydralazine in increasing doses. The patient may remain on p.r.n. clonidine. We will try and lower his systolic blood pressure into the 140-150 range. 3. Hyperlipidemia. The patient may be maintained on statin therapy along with a low-fat, low-cholesterol diet. 4. Status post acute right-sided cerebrovascular accident with left-sided weakness, which has resolved. This is in the setting of uncontrolled hypertension and uncontrolled diabetes. PLAN: 1. We will obtain a full serological workup in light of his acute renal failure. 2. Renal ultrasound Reviewed with the patient. I explained to him this is a normal study, so no evidence for obstructive uropathy. 3. Urine eosinophil stain was negative, so no evidence for acute interstitial nephritis. 4. Did explain to him that in all likelihood he has significant renal impairment secondary to uncontrolled diabetes of many years' duration. Unfortunately, despite being asked to do blood work over the last several years, the patient has not had laboratory work done at any point in time recently. 5. In all likelihood, a renal biopsy will likely not be necessary. 6. I did explain to the patient that he will need to take stock of the situation and follow up closely with Nephrology in the outpatient setting. He is welcome to return to our office in [place], if he so desires. 7. Try and achieve better sugar control, try and lower hemoglobin A1c close to 7%. This will likely need to be achieved with combination oral agents and insulin. 8. Continue to monitor the patient on telemetry for the time being. 9. The patient needs to be started on a renal diet. His phosphorus level was mildly elevated consistent with likely secondary hyperparathyroidism. The patient will need to start binder therapy as well. A lengthy time spent with the patient explaining to him that his noncompliance with a dangerous disease has likely brought him to this point in time. Thank you for letting me partake and share in the care of your patient. Wagner Marshall MD
[2018-08-19 20:13] LABS: PH,URINE 5.5 (4.7-8.0); URINE APPEARANCE CLEAR (CLEAR); URINE BILIRUBIN NEGATIVE (NEGATIVE); URINE BLOOD NEGATIVE (NEGATIVE); URINE COLOR LIGHT YELLOW (YELLOW); URINE GLUCOSE (UA) NEGATIVE (NEGATIVE); URINE LEUKOCYTE ESTERASE NEGATIVE Leu/uL (NEGATIVE); URINE PROTEIN 30 mg/dL (<30 mg/dL); URINE UROBILINOGEN 0.2 E.U./dL (<1 E.U./dL)
[2018-08-19 20:25] LABS: URINE WBC 0 - 2 /hpf (0-6)
--- NOTE | 2018-08-20 02:15 | PN ---
DATE: 08/19/2018 SUBJECTIVE: The patient is a 62-year-old, seen and examined lying in bed, seems to be comfortable. No complaints of any weakness or numbness. PHYSICAL EXAMINATION VITAL SIGNS: He is afebrile, pulse 103, respirations 20, blood pressure 163/90. LUNGS: Bilateral fair airflow. No rhonchi or crackle. HEART: S1, S2 audible. ABDOMEN: Soft, nontender. No rebound. No guarding. NEUROLOGIC: He is awake and alert, able to communicate. LABORATORY DATA: His chemistry; sodium is 138, potassium 3.6, chloride 100, CO2 of 25, BUN 29, creatinine 3.9, blood sugar 125, cholesterol 254. Carotid Doppler is unremarkable. MRI of the brain shows subcortical right middle cerebral artery scattered infarcts secondary to uncontrolled hypertension and diabetes. ASSESSMENT: 1. Dizziness with unstable gait. 2. Multiple small acute infarcts in the right frontal lobe involving the white matter and cortex. 3. Uncontrolled diabetes. 4. Hypertension. 5. Hyperlipidemia. 6. diabetic neuropathy. PLAN: Currently, the patient is on hydralazine 50 mg twice a day, he is on Glimepiride, he is on Clonidine p.r.n., he is on aspirin 81 daily. Continue him on Januvia. He is on Lipitor. He has been started on Plavix. We will follow up his CBC, CMP. His workup has been started. We will follow up his BUN and creatinine and will discuss with our gift consultant. Start physical therapy and gait training. Ze Mcknight MD
[2018-08-20 07:49] LABS: ALB/GLOB RATIO 0.9 (1.1-1.8); ALBUMIN 3.9 g/dL (3.0-4.8); ALT/SGPT 22 U/L (7-56); AST/SGOT 30 U/L (17-59); BLOOD UREA NITROGEN 42 mg/dL (7-21); CALCIUM 9.3 mg/dL (8.4-10.5); GFR NON-AFRICAN AMERICAN 16
[2018-08-20] MEDS: Insulin Reg-MEDIUM-Coverage SC SCH ×4 (08:09→21:14)
[2018-08-20 12:32] LABS: COMPLEMENT C4 36.2 mg/dL (14.0-44.0)
[2018-08-20 12:55] LABS: HEPATITIS B SURFACE AG Negative (NEGATIVE)
[2018-08-20 13:12] LABS: HEPATITIS C ANTIBODY NEGATIVE (NEGATIVE)
--- NOTE | 2018-08-20 15:02 | PN ---
DATE: 08/20/2018 SUBJECTIVE: The patient is seen sitting in bed. Awake, he is alert, is comfortable. He does not appear to be in any kind of distress. PHYSICAL EXAMINATION: GENERAL: Elderly male sitting in bed. VITAL SIGNS: Blood pressure 164/88, heart rate 84, respiratory rate 18, temperature 97.9. HEENT: Normocephalic, atraumatic, positive pallor. NECK: Supple, no JVD. LUNGS: Bilateral equal entry, bilateral equal expansion. CARDIAC: S1, S2. Regular rate and rhythm, no murmur, no rub. ABDOMEN: Soft, nondistended, nontender, bowel sounds present, no bruits. EXTREMITIES: No lower extremity edema. INTAKE AND OUTPUT: 1360/650. LABORATORY DATA: WBC 7.0, hemoglobin 13, hematocrit 38, platelets 260. Sodium 136, potassium 3.7, chloride 100, CO2 of 24, BUN 42, creatinine 3.8, glucose 88, calcium 9.3, phosphorus 4.7, AST 30, ALT 22. PTH 150. Vitamin D 28. Urinalysis yellow clear, pH 5.5, specific less than 1.005, protein 30, urine protein creatinine ratio consistent with about 900 mg of proteinuria. Complements normal. Rheumatoid arthritis negative, RA negative, BRUNO six profile. Increase gammaglobulin. Renal ultrasound showing normal size kidneys. Echocardiogram done on 08/18/2018 showing moderate left concentric left ventricular hypertrophy, normal ejection fraction, mild pulmonary valvular regurgitation. Carotid artery ultrasound. Bilateral 20%-39% proximal ICA stenosis. CURRENT MEDICATIONS: Amaryl 2 mg with meals, 50 twice a day, aspirin, clonidine 0.1 every 8 hours, Januvia 25, Lipitor 80, amlodipine 10, PhosLo 667 three times a day with meals, Plavix 75, amlodipine. ASSESSMENT: 1. Severe uncontrolled hypertension. 2. Severe uncontrolled diabetes. 3. Advanced chronic kidney disease stage IV, suspect. 4. Proteinuria. 5. Status post cerebrovascular accident. 6. No medical treatment for many years. PLAN: 1. Continue amlodipine 10 mg daily. 2. Continue clonidine 0.1 three times a day. 3. Change hydralazine to 50 three times a day. 4. Follow up 24 hours urine for protein and creatinine clearance. 5. Continue oral hypoglycemics. 6. Etiology of advanced renal insufficiency is a combination of diabetic nephropathy and hypertensive nephrosclerosis. 7. No evidence of ischemic nephropathy. 8. Long discussion with the patient, requires close outpatient followup, I have discussed with him the importance of blood pressure control and glycemic control and slowing down the progression of his kidney disease. 9. Will need renal replacement therapy in the future. Jade Ortiz MD
[2018-08-20 21:04] VITALS: RESP 18
[2018-08-20 21:38] LABS: URINE CREATININE 46.2 mg/dL
--- NOTE | 2018-08-20 23:34 | PN ---
DATE: 08/20/2018 SUBJECTIVE: The patient is 62 years old, seen and examined, ambulatory, denies any chest pain, no shortness of breath. PHYSICAL EXAMINATION: VITAL SIGNS: He is afebrile, pulse 83, respirations 20, and blood pressure 155/89. LUNGS: Bilateral fair airflow. No rhonchi or crackles. HEART: S1 and S2 audible. ABDOMEN: Soft and nontender. No rebound, no guarding. NEUROLOGIC: The patient is awake and alert, able to communicate. LABORATORY DATA: ESR is 70. Chemistries; sodium 136, potassium 3.7, chloride 100, CO2 of 24, BUN of 42, creatinine 3.8, and blood sugar of 88. LFTs are within normal limits. His is 150. Vitamin D is 28.3. His rheumatoid factor is negative. Complement level is within normal limits. Hepatitis profile is negative. ASSESSMENT: 1. Uncontrolled hypertension. 2. Noninsulin-dependent diabetes. 3. Hyperlipidemia. 4. Diabetic neuropathy. 5. Multiple small acute infarcts in the right frontal lobe involving white matter and cortex. PLAN: I will discontinue telemetry and encourage ambulation. His blood sugar is being monitored. We will continue him on hydralazine 50 mg t.i.d. and aspirin 81 mg daily. He is on 0.1 three times a day. He is on Januvia. He is on atorvastatin and Norvasc. He has been started on PhosLo and Plavix. We will reevaluate patient in a.m. and make discharge plan. Ze Mcknight MD
[2018-08-21 08:53] VITALS: TEMP 98.1; O2SAT 99
[2018-08-21] MEDS: Insulin Reg-MEDIUM-Coverage SC SCH ×2 (09:08→11:34)
[2018-08-21 14:06] VITALS: BP 152/72; PULSE 80
--- NOTE | 2018-08-21 16:27 | PN ---
DATE: 08/21/2018 SUBJECTIVE: The patient is seen lying in bed. He is awake, he is alert, is comfortable. He denies any headaches. Denies any chest pains. Denies any palpitations. Denies any weakness. PHYSICAL EXAMINATION GENERAL: Middle-aged male lying in bed. VITAL SIGNS: Blood pressure was 158/92, heart rate 81, respiratory rate 18 and temperature 98.1. HEENT: Normocephalic and atraumatic. Positive pallor. NECK: Supple, no JVD. LUNGS: Bilateral equal entry, bilateral equal expansion. CARDIAC: S1 and S2, regular rate rhythm, no murmur, no rub. ABDOMEN: Soft, nondistended, nontender, bowel sounds present. EXTREMITIES: No lower extremity edema. INTAKE AND OUTPUT: 1920/2650. LABORATORY DATA: No CBC. Chemistry done yesterday; sodium 136, potassium 3.7, chloride 100, CO2 of 24, BUN 42, creatinine 3.8, glucose of 188, calcium 9.3 and albumin 3.9. A 24-hour urine showing creatinine clearance of 18 mL/minute. Urine protein of 1342 mg per day. Hepatitis serology negative. Complements normal. BRUNO negative. Rheumatoid arthritis interpretation negative. Increased gammaglobulin. CURRENT MEDICATIONS: Amaryl 2 mg with meals, Apresoline 50 t.i.d., aspirin 81, Catapres 0.1 t.i.d., Januvia 25, Lipitor 80, amlodipine 10, PhosLo with meals and Plavix 75. ASSESSMENT: 1. Severe uncontrolled hypertension, no treatment for a long time. 2. Severe uncontrolled diabetes, once again no treatment for many years. 3. Advanced chronic kidney disease stage IV. 4. Proteinuria. 5. Status post cerebrovascular accident. 6. Poor insight. PLAN: 1. Continue current antihypertensives. 2. Needs tight glycemic control. 3. Needs close outpatient followup. 4. I have discussed with the patient the importance of glycemic control and blood pressure control and slowing down progression of kidney disease. 5. Will eventually need renal replacement therapy. Jade Ortiz MD
--- NOTE | 2018-08-22 01:27 | DS ---
HISTORY OF PRESENT ILLNESS: The patient is a 62-year-old who was admitted with left-sided weakness along with unstable gait as he is going to fall. Family noted he was little altered, so he was brought to emergency room and workup was done. Carotid Doppler unremarkable; however, MRI showed that he had multiple small acute infarct in the right frontal lobe involving deep white matter and cortex. PHYSICAL EXAMINATION: GENERAL: He is awake, alert, and not able to communicate. VITAL SIGNS: He is afebrile, pulse 81, respirations 18, and blood pressure 168/92. LUNGS: Bilateral fair airflow. No rhonchi or crackle. HEART: S1 and S2 audible. ABDOMEN: Soft. Nontender. No rebound. No guarding. NEUROLOGICAL: He is awake and alert, able to communicate, and ambulatory. LABORATORY DATA: Blood sugar is 113. His creatinine clearance is 18 and 24-hour urine protein . ASSESSMENT: 1. Acute cerebrovascular accident with unstable gait, but the patient seems to be doing well. He does not want to go to any inpatient physical therapy place, he said he will get as an outpatient. 2. Uncontrolled hypertension because of noncompliance and uncontrolled diabetes because of noncompliance. 3. Hyperlipidemia. PLAN: The patient is going to be discharged home today on Amaryl 2 mg twice a day, hydralazine 50 mg three times a day, aspirin 81 mg daily, clonidine 0.1 three times a day, Januvia 25 daily, atorvastatin 80 mg daily, amlodipine 10 mg daily, PhosLo 667 with each meal, and Plavix 75 daily. He is advised to follow up with Dr. Ortiz and myself and he is advised to follow up diabetic diet and low sodium diet. We will see the patient in a week or two. Ze Mcknight MD
== END 2018-08-21 16:46 | disposition home or self-care (01) | DRG 65 ==
LOC: ED 20:38 → ERH 21:49 → 2RNO 23:32 → 3RSO 08-20 18:52
PROVIDERS: ADMIT Internal Medicine Nephrology; ATTEND Internal Medicine
DX: I63.511 Cerebral infarction due to unspecified occlusion or stenosis of right middle cerebral artery (principal); I69.354 Hemiplegia and hemiparesis following cerebral infarction affecting left non-dominant side; N17.9 Acute kidney failure, unspecified; N18.4 Chronic kidney disease, stage 4 (severe); R47.81 Slurred speech; R29.810 Facial weakness; M50.322 Other cervical disc degeneration at C5-C6 level; E78.00 Pure hypercholesterolemia, unspecified; E87.6 Hypokalemia; E11.65 Type 2 diabetes mellitus with hyperglycemia; M19.90 Unspecified osteoarthritis, unspecified site; E78.5 Hyperlipidemia, unspecified; I16.0 Hypertensive urgency; N28.9 Disorder of kidney and ureter, unspecified; R29.705 NIHSS score 5; N18.3 Chronic kidney disease, stage 3 (moderate); E11.22 Type 2 diabetes mellitus with diabetic chronic kidney disease; I12.9 Hypertensive chronic kidney disease with stage 1 through stage 4 chronic kidney disease, or unspecified chronic kidney disease; Z79.4 Long term (current) use of insulin; Z91.19 Patient's noncompliance with other medical treatment and regimen; Z79.899 Other long term (current) drug therapy; E11.40 Type 2 diabetes mellitus with diabetic neuropathy, unspecified; Z79.02 Long term (current) use of antithrombotics/antiplatelets; Z83.3 Family history of diabetes mellitus; I65.23 Occlusion and stenosis of bilateral carotid arteries

== ENCOUNTER 2018-09-05 01:01 | Observation (INO) | payer BC ==
[2018-09-05 01:13] VITALS: BMI 25.0
--- NOTE | 2018-09-05 01:29 | ED PDOC ---
Arrival/HPI - General Chief Complaint: Altered Mental Status Time Seen by Provider: 09/05/18 01:13 Historian: Patient - History of Present Illness Narrative History of Present Illness (Text): 09/05/18 01:23 62 year old male, whose past medical history includes diabetes and CVA, presents to the emergency department with hypoglycemia. Patient's informs she noticed him drenched in sweat 2 hours ago. informs she measured his blood sugar and called EMS. Patient informs he ate a normal amount today and is unsure why this happened. Patient denies any complaints. Hypoglycemia was treated en route prior to arrival. Patient denies any fevers, chills, headache, dizziness, chest pain, shortness of breath, dyspnea on exertion, cough, abdominal pain, nausea, vomiting, diarrhea, back pain, neck pain, or any other complaint. Time/Duration: Prior to Arrival Symptom Onset: Gradual Symptom Course: Improving Activities at Onset: Light Context: Home Past Medical History - Provider Review Nursing Documentation Reviewed: Yes - Cardiac Hx Cardiac Disorders: Yes Hx Hypertension: Yes - Pulmonary Hx Respiratory Disorders: No - Neurological Hx Neurological Disorder: Yes HX Cerebrovascular Accident: Yes - HEENT Hx HEENT Disorder: No - Renal Hx Renal Disorder: Yes Other/Comment: Patient reports having renal disease, reeports 30% renal function, denies having dialysis. - Endocrine/Metabolic Hx Endocrine Disorders: Yes Hx Diabetes Mellitus Type 1: Yes - Hematological/Oncological Hx Blood Disorders: No - Integumentary Hx Dermatological Disorder: No - Musculoskeletal/Rheumatological Hx Musculoskeletal Disorders: No Hx Falls: No - Gastrointestinal Hx Gastrointestinal Disorders: No - Genitourinary/Gynecological Hx Genitourinary Disorders: No - Psychiatric Hx Psychophysiologic Disorder: No Hx Substance Use: No - Anesthesia Hx Anesthesia: No Hx Anesthesia Reactions: No Hx Malignant Hyperthermia: No Family/Social History - Physician Review Nursing Documentation Reviewed: Yes Family/Social History: No Known Family HX Smoking Status: Unknown If Ever Smoked Hx Alcohol Use: No Hx Substance Use: No Allergies/Home Meds Allergies/Adverse Reactions: Allergies No Known Allergies Allergy (Verified 09/05/18 01:17) Review of Systems - Physician Review All systems were reviewed & negative as marked: Yes - Review of Systems Constitutional: absent: Fevers, Night Sweats Respiratory: absent: SOB, Cough Cardiovascular: absent: Chest Pain, BRADY Gastrointestinal: absent: Abdominal Pain, Diarrhea, Nausea, Vomiting Musculoskeletal: absent: Back Pain, Neck Pain Neurological: absent: Headache, Dizziness Physical Exam - Systems Exam Head: Present: Atraumatic, Normocephalic Pupils: Present: PERRL Extroacular Muscles: Present: EOMI Conjunctiva: Present: Normal Mouth: Present: Moist Mucous Membranes Neck: Present: Normal Range of Motion Respiratory/Chest: Present: Clear to Auscultation, Good Air Exchange. No: Respiratory Distress, Accessory Muscle Use Cardiovascular: Present: Regular Rate and Rhythm, Normal S1, S2. No: Murmurs Abdomen: No: Tenderness, Distention, Peritoneal Signs Back: Present: Normal Inspection Upper Extremity: Present: Normal Inspection. No: Cyanosis, Edema Lower Extremity: Present: Normal Inspection. No: Edema Neurological: Present: GCS=15, CN II-XII Intact, Speech Normal Skin: Present: Warm, Dry, Normal Color. No: Rashes Psychiatric: Present: Alert, Oriented x 3, Normal Insight, Normal Concentration Medical Decision Making ED Course and Treatment: 09/05/18 01:30 Impression: 62 year old male presents for evaluation of hypoglycemia. Plan: -- EKG -- Cardiac Iso, CMP, Mg -- CBC Platelets -- Chest X-ray -- Urinalysis -- Reassess and disposition Prior Visits: Notes and results from previous visits were reviewed. Progress Notes: 09/05/18 04:27 on ALBRECHT, will obs dr maxwell accmita at this time in [facility]. - RAD Interpretation Radiology Orders: 09/05/18 01:18 CHEST PORTABLE [RAD] Stat - Scribe Statement The provider has reviewed the documentation as recorded by the Mike Horne Provider Scribe Attestation: All medical record entries made by the Scribe were at my direction and personally dictated by me. I have reviewed the chart and agree that the record accurately reflects my personal performance of the history, physical exam, medical decision making, and the department course for this patient. I have also personally directed, reviewed, and agree with the discharge instructions and disposition. Disposition/Present on Arrival - Present on Arrival Any Indicators Present on Arrival: No History of DVT/PE: No History of Uncontrolled Diabetes: No Urinary Catheter: No History of Decub. Ulcer: No History Surgical Site Infection Following: None - Disposition Have Diagnosis and Disposition been Completed?: Yes Diagnosis: Hypoglycemia Disposition: HOSPITALIZED Disposition Time: 02:00 Condition: STABLE
[2018-09-05 01:33] LABS: BASO # 0.02 K/mm3 (0.0-2.0); BASO % 0.3 % (0.0-3.0); EOS % 0.6 % (1.5-5.0); HEMOGLOBIN 13.8 g/dL (14.0-18.0); LYMPH # 1.6 (1.2-3.4); LYMPH % 24.4 % (22.0-35.0); MEAN CELL VOLUME 88.7 fl (80.0-105.0); MEAN CORPUSCULAR HEMOGLOBIN 30.1 pg (25.0-35.0); MEAN CORPUSCULAR HGB CONC 33.9 g/dl (31.0-37.0); MONO # 0.6 (0.1-0.6); MONO % 8.4 % (1.0-6.0); RBC 4.59 10^6/uL (3.5-6.1); WHITE BLOOD COUNT 6.6 10^3/uL (4.5-11.0)
[2018-09-05 01:47] LABS: INR 0.89; PARTIAL THROMBOPLASTIN TIME 33.6 Seconds (26.9-38.3)
[2018-09-05 01:51] LABS: ALBUMIN 4.6 g/dL (3.0-4.8); CALCIUM 9.6 mg/dL (8.4-10.5)
[2018-09-05 01:54] VITALS: RESP 18
[2018-09-05 02:00] LABS: TROPONIN I 0.02 ng/mL
[2018-09-05 02:08] LABS: PROTHROMBIN TIME 9.9 SECONDS (9.4-12.5)
[2018-09-05 02:23] LABS: PH,URINE 7.5 (4.7-8.0); URINE BILIRUBIN NEGATIVE (NEGATIVE); URINE BLOOD NEGATIVE (NEGATIVE); URINE GLUCOSE (UA) NEGATIVE (NEGATIVE); URINE LEUKOCYTE ESTERASE NEGATIVE Leu/uL (NEGATIVE); URINE PROTEIN 100 mg/dL (<30 mg/dL); URINE UROBILINOGEN 0.2 E.U./dL (<1 E.U./dL)
[2018-09-05 02:34] LABS: URINE APPEARANCE SL CLOUDY (CLEAR); URINE COLOR STRAW (YELLOW)
[2018-09-05 02:55] LABS: URINE BACTERIA FEW /hpf
[2018-09-05] MEDS: Dextrose 5%/0.45% NS 1,000 ML IV SCH ×2 (03:57→18:41)
--- NOTE | 2018-09-05 09:14 | RAD ---
Date of service: 09/05/2018 HISTORY: ams COMPARISON: 08/16/2018 TECHNIQUE: 1 view obtained. FINDINGS: LUNGS: No active pulmonary disease. PLEURA: No significant pleural effusion identified, no pneumothorax apparent. CARDIOVASCULAR: No aortic atherosclerotic calcification present. Normal cardiac size. No pulmonary vascular congestion. OSSEOUS STRUCTURES: No significant abnormalities. VISUALIZED UPPER ABDOMEN: Normal. OTHER FINDINGS: None. IMPRESSION: No active disease.
[2018-09-05] MEDS: Insulin Lispro (humaLOG) LOW Coverage SC SCH ×3 (11:37→22:33)
--- NOTE | 2018-09-05 14:39 | HP ---
DATE OF EXAM: 09/05/2018 HISTORY OF PRESENT ILLNESS: The patient is 62-year-old black male who was recently admitted with after CVA, he was found to have non-insulin dependant diabetes, had CVA and he was found to have uncontrolled diabetes and hypertension. He was started on oral hypoglycemic and antihypertensive. The patient was doing well. I saw him in office last week. His blood pressure was relatively high. Adding Norvasc for his regimen. The patient states last night he had burger with lettuce and around 11:00 he started to feel sweaty and check the blood sugar it was found to be low, so she called ambulance and he was brought to emergency room. The patient was given D50 and started to feel better placed on observation to monitor further. PAST MEDICAL HISTORY: He has significant past medical history of; 1. Hypertension. 2. Non-insulin dependant diabetes. 3. Hyperlipidemia. 4. Recent CVA, involving the acute infarct in the right frontal lobe. ALLERGIES: HE IS NOT ALLERGIC TO ANY MEDICATIONS. MEDICATIONS: At home, he is on hydralazine 50 mg three times a day, aspirin 81 mg daily, 0.1 three times a day and he is on atorvastatin 80 mg daily, amlodipine 10 mg daily and Plavix 75 mg daily. SOCIAL HISTORY: He is . 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 PHYSICAL EXAMINATION: GENERAL: He is fairly awake, alert, oriented and communicative. VITAL SIGNS: He is afebrile. Pulse 94, respiration 18 and blood pressure 180/100. LUNGS: Bilateral fair airflow. No rhonchi or crackle. HEART: S1 and S2, audible. ABDOMEN: Soft and nontender. No rebound. No guarding. NEUROLOGIC: The patient is awake, alert and able to communicate. LABORATORY DATA: WBC 6.6, hemoglobin 13.8, hematocrit 41.7 and platelet 344. PT 9.9 and INR 0.89. Chemistry; sodium 141, potassium 4.5, chloride 98, CO2 of 29, BUN 29, creatinine 2.7 and blood sugar is 69. Urinalysis shows unremarkable except proteinuria. X-ray of chest is unremarkable. ASSESSMENT AND PLAN: Episode of hypoglycemia, his oral hypoglycemics are on hold for now. Currently, he is on Januvia 25 and he is on glimepiride 4 mg twice a day. We will hold it for now and monitor his blood sugar. We have restarted his medications and out of bed to chair and physical therapy evaluation has been requested. Ze Mcknight MD
--- NOTE | 2018-09-05 23:57 | CARD ---
APPROVED REPORT Date of service: 09/05/2018 EKG Measurement Heart [id number] <Conclusion> Sinus tachycardia Otherwise normal ECG
[2018-09-06] MEDS: Insulin Lispro (humaLOG) LOW Coverage SC SCH ×3 (08:31→16:25)
[2018-09-06 15:39] VITALS: TEMP 97.3; O2SAT 97
[2018-09-06 17:25] VITALS: BP 111/73
[2018-09-06 17:29] VITALS: PULSE 93
--- NOTE | 2018-09-07 00:31 | DS ---
SUBJECTIVE: The patient is a 62-year-old black male, was recently admitted when he was confused and unstable gait. He was found to have multiple small infarcts in frontal lobe. He was found to have acute kidney injury along with uncontrolled diabetes and hypertension. The patient has been started on antihypertensive and oral hypoglycemics. The day he came to the hospital, he states his and him ate burger with salad and after 2 to 3 hours, she found him somewhat confused and diaphoretic, so she called ambulance and was brought to emergency room. He was found to have low blood sugar of up to 50, so he was given D50 on the way and was placed on IV dextrose and has been off of oral hypoglycemic. He was observed for 24 hours, seems to be doing well. PHYSICAL EXAMINATION: VITAL SIGNS: He is afebrile, pulse 77, respirations 18, blood pressure 172/87. LUNGS: Bilateral fair airflow. No rhonchi or crackle. HEART: S1, S2 audible. ABDOMEN: Soft, nontender, no rebound, no guarding. NEUROLOGIC: The patient is awake and alert, able to communicate. LABORATORY DATA: His blood sugar this morning is 260. His WBC 6.6, hemoglobin 13, hematocrit 40, platelets 344. ASSESSMENT: 1. Episode of hypoglycemia. 2. Hypertension. 3. Hypertensive renovascular disease. PLAN: The patient will be discharged today. He is tolerating his oral feeding. His glimepiride will be decreased to 2 mg before breakfast and dinner and otherwise, he will stay on hydralazine 50 mg 3 times a day, clonidine 0.3 mg per 24 hour and Januvia 25 daily. He will stay on glimepiride, PhosLo, atorvastatin and aspirin. He will follow up in office. We will follow up the patient in 2 weeks. Ze Mcknight MD
== END 2018-09-06 18:55 | disposition home or self-care (01) ==
LOC: ED 01:01 → ERH 03:12 → 5RNO 06:48
PROVIDERS: ADMIT Internal Medicine; ATTEND Internal Medicine
DX: E11.649 Type 2 diabetes mellitus with hypoglycemia without coma (principal); N17.9 Acute kidney failure, unspecified; I12.9 Hypertensive chronic kidney disease with stage 1 through stage 4 chronic kidney disease, or unspecified chronic kidney disease; N18.9 Chronic kidney disease, unspecified; E11.22 Type 2 diabetes mellitus with diabetic chronic kidney disease; E78.5 Hyperlipidemia, unspecified; R26.81 Unsteadiness on feet; Z86.73 Personal history of transient ischemic attack (TIA), and cerebral infarction without residual deficits; Z79.84 Long term (current) use of oral hypoglycemic drugs
CPT/HCPCS: 71045; 80053; 81001; 82550; 82948; 83615; 83735; 84484; 85025; 85610; 85730; 93005; 97161; 99285; G0378; G8978; G8979; G8980; J7042